=== PATIENT | male | born 1995 | race Caucasian/White ===

== ENCOUNTER 2020-01-20 14:14 | Emergency (ER) | payer MEDICAID ==
[~2020-01-20] VITALS: Ht 182.9 cm; Wt 72.6 kg
[2020-01-20 14:18] VITALS: BP_SYST 118
[2020-01-20 14:20] VITALS: BP_SYST 118
== END 2020-01-20 14:25 ==
LOC: SED 14:14
DX: S00.81XA Abrasion of other part of head, initial encounter (principal); Y04.0XXA Assault by unarmed brawl or fight, initial encounter; Y93.89 Activity, other specified; Y92.89 Other specified places as the place of occurrence of the external cause; Y99.8 Other external cause status
CPT/HCPCS: 99283